=== PATIENT | female | born 1980 | race Caucasian/White ===

== ENCOUNTER 2018-11-16 17:16 | Inpatient (IN) ==
--- NOTE | 2018-11-16 18:50 | ED ---
HPI General Chief Complaint: Psychiatric Symptoms Stated Complaint: BA/VCSO Time Seen by Provider: 11/16/18 18:27 Source: patient Mode of arrival: other (Police) History of Present Illness HPI Narrative: Patient is a 38-year-old female [facility] under [facility] for psychiatric evaluation. Patient allegedly made suicidal statements while with her therapist today. She reports that she has a history of overdosing purposely a year ago. Patient reports a new recent life stressor but does not elaborate. She has no physical complaints at this time. She reports a history significant for prediabetes, depression, anxiety. MD complaint: Reports suicidal ideation and feels depressed Onset (ago): unknown Duration: constant History of same: Yes Relieving factors: none Context: Reports significant life stressor Associated symptoms: Reports denies other symptoms Related Data Home Medications Medication Instructions Recorded Confirmed clonazepam 0.5 mg PO BID 11/16/18 11/16/18 fexofenadine [Tova Allergy] 180 mg PO DAILY 11/16/18 11/16/18 fluoxetine 60 mg PO DAILY 11/16/18 11/16/18 hydroxyzine pamoate 25 mg PO HS 11/16/18 11/16/18 levocetirizine [Xyzal] 5 mg PO DAILY 11/16/18 11/16/18 lurasidone [Latuda] 40 mg PO DAILY 11/16/18 11/16/18 metformin 500 mg PO DAILY 11/16/18 11/16/18 montelukast 10 mg PO QPM 11/16/18 11/16/18 norethindrone (contraceptive) 0.35 mg PO DAILY 11/16/18 11/16/18 ranitidine HCl 150 mg PO BID 11/16/18 11/16/18 trazodone 50 mg PO DAILY 11/16/18 11/16/18 Allergies Allergy/AdvReac Type Severity Reaction Status Date / Time risperidone Allergy Hives Verified 06/24/18 07:38 Review of Systems ROS: all other systems reviewed are negative [facility] Medical History Medical History Bipolar 1 disorder (Acute) delivery delivered (Acute) Depressed (Acute) Herniated disc (Acute) Mood disorder (Acute) Pre-diabetes (Acute) Reflux esophagitis (Acute) Surgical History Surgical History H/O LEEP (Acute) Social History Social History Substance History: No History of Abuse Second Hand Smoke Exposure: Yes Smoking Status: Never smoker How Often Do You Have a Drink Containing Alcohol: Never Recent Travel in [facility] within the Last 8 Weeks: No Recent Out of Country Travel within the Last 8 Weeks: No Immunization History Tetanus Immunization: Unsure Exam Narrative Exam Narrative: GENERAL: Overweight, well-developed, alert female. Presenting in no acute distress. SKIN: Focused skin assessment warm/dry. HEAD: Atraumatic. Normocephalic. EYES: Pupils equal and round. No scleral icterus. No injection or drainage. ENT: No nasal bleeding or discharge. Mucous membranes pink and moist. NECK: Trachea midline. No JVD. CARDIOVASCULAR: Regular rate and rhythm. No murmur appreciated. RESPIRATORY: No accessory muscle use. Clear to auscultation. Breath sounds equal bilaterally. GASTROINTESTINAL: Abdomen soft, non-tender, nondistended. Hepatic and splenic margins not palpable. MUSCULOSKELETAL: No obvious deformities. No clubbing. No cyanosis. No edema. NEUROLOGICAL: Awake and alert. No obvious cranial nerve deficits. Motor grossly within normal limits. Normal speech. PSYCHIATRIC: Depressed mood and flat affect; insight and judgment normal. Course Initial Documented Vital Signs Temperature 99.0 F 11/16/18 17:52 Pulse Rate 97 H 11/16/18 17:52 Respiratory Rate 20 11/16/18 17:52 Blood Pressure 143/94 H 11/16/18 17:52 Pulse Oximetry 97 11/16/18 17:52 Last Documented Vital Signs Temperature 99 F 11/17/18 06:00 Pulse Rate 78 11/17/18 06:00 Respiratory Rate 16 11/17/18 06:00 Blood Pressure 122/76 11/17/18 06:00 Pulse Oximetry 96 11/17/18 06:00 Sign Out Sign Out Data: Patient Sign Out occurred on 11/16/18 at 19:09. Patient's care was discussed, and care was transferred from Luann Santos to Jose Swenson MD. Sign Out Comment: Labs pending > med clear for psych Last updated by Luann Santos ARNP at 11/16/18 19:08 Medical Decision Making MDM Narrative Medical decision making narrative: Patient is a 38-year-old female presenting under Gutierrez act for psychiatric evaluation. Mental health screening discussed with the patient. Psychiatric screen ordered. Care of patient transferred to Dr. Swenson who will determine disposition when labs result. Medical Screen Exam Complete: Yes Emergency Medical Condition: Yes Differential Diagnosis Differential Diagnosis: Mood disorder versus depression versus suicidal ideations versus metabolic abnormality versus other Lab Data Result diagrams: 11/16/18 18:30 11/17/18 08:32 Lab Results 11/16/18 11/16/18 11/16/18 Range/Units 18:30 18:30 18:30 WBC 10.5 (4.0-11.0) th/mm3 RBC 4.95 (4.00-5.30) mil/mm3 Hgb 14.5 (11.6-15.3) gm/dL Hct 42.9 (35.0-46.0) % MCV 86.6 (80.0-100.0) fL MCH 29.2 (27.0-34.0) pg MCHC 33.7 (32.0-36.0) % RDW 12.9 (11.6-17.2) % Plt Count 317 (150-450) th/mm3 MPV 7.9 (7.0-11.0) fL Neut % (Auto) 61.0 (16.0-70.0) % Lymph % (Auto) 28.6 (9.0-44.0) % [place] % (Auto) 7.6 (0.0-8.0) % Eos % (Auto) 2.3 (0.0-4.0) % Baso % (Auto) 0.5 (0.0-2.0) % Neut # (Auto) 6.4 (1.8-7.7) th/mm3 Lymph # (Auto) 3.0 (1.0-4.8) th/mm3 [place] # (Auto) 0.8 (0.0-0.9) th/mm3 Eos # (Auto) 0.2 (0.0-0.4) th/mm3 Baso # (Auto) 0.1 (0.0-0.2) th/mm3 WBC Differential . Differential Comment Auto diff final Sodium 138 (136-145) meq/L Potassium 3.7 (3.5-5.1) meq/L Chloride 106 (98-107) meq/L Carbon Dioxide 24.1 (21.0-32.0) meq/L Anion Gap 8 (5-15) meq/L BUN 10 (7-18) mg/dL Creatinine 0.79 (0.50-1.00) mg/dL Estimated GFR 81 L (>89) mL/min Random Glucose 130 H (74-106) mg/dL Hemoglobin A1c (4.3-6.0) % Calcium 8.7 (8.5-10.1) mg/dL Magnesium 2.0 (1.5-2.5) mg/dL Total Bilirubin 0.1 L (0.2-1.0) mg/dL AST 13 L (15-37) U/L ALT 18 (10-53) U/L Alkaline Phosphatase 64 (45-117) U/L Total Protein 7.3 (6.4-8.2) g/dL Albumin 3.5 (3.4-5.0) g/dL Triglycerides (42-150) mg/dL Cholesterol (120-200) mg/dL LDL Cholesterol, Calc (0-99) mg/dL HDL Cholesterol (40.0-60.0) mg/dL Cholesterol/HDL Ratio Ratio TSH 1.160 (0.358-3.740) uIU/mL Urine Opiates Screen Neg (Neg) Ur Barbiturates Screen Neg (Neg) Ur Amphetamines Screen Neg (Neg) U Benzodiazepines Scrn Neg (Neg) Urine Cocaine Screen Neg (Neg) U Cannabinoids Screen Neg (Neg) Serum Alcohol Less than 3 (0-5) mg/dL 11/17/18 11/17/18 Range/Units 08:32 08:32 WBC (4.0-11.0) th/mm3 RBC (4.00-5.30) mil/mm3 Hgb (11.6-15.3) gm/dL Hct (35.0-46.0) % MCV (80.0-100.0) fL MCH (27.0-34.0) pg MCHC (32.0-36.0) % RDW (11.6-17.2) % Plt Count (150-450) th/mm3 MPV (7.0-11.0) fL Neut % (Auto) (16.0-70.0) % Lymph % (Auto) (9.0-44.0) % [place] % (Auto) (0.0-8.0) % Eos % (Auto) (0.0-4.0) % Baso % (Auto) (0.0-2.0) % Neut # (Auto) (1.8-7.7) th/mm3 Lymph # (Auto) (1.0-4.8) th/mm3 [place] # (Auto) (0.0-0.9) th/mm3 Eos # (Auto) (0.0-0.4) th/mm3 Baso # (Auto) (0.0-0.2) th/mm3 WBC Differential Differential Comment Sodium 137 (136-145) meq/L Potassium 3.9 (3.5-5.1) meq/L Chloride 103 (98-107) meq/L Carbon Dioxide 25.1 (21.0-32.0) meq/L Anion Gap 9 (5-15) meq/L BUN 10 (7-18) mg/dL Creatinine 0.89 (0.50-1.00) mg/dL Estimated GFR 71 L (>89) mL/min Random Glucose 223 H (74-106) mg/dL Hemoglobin A1c 6.7 H (4.3-6.0) % Calcium 8.8 (8.5-10.1) mg/dL Magnesium (1.5-2.5) mg/dL Total Bilirubin (0.2-1.0) mg/dL AST (15-37) U/L ALT (10-53) U/L Alkaline Phosphatase (45-117) U/L Total Protein (6.4-8.2) g/dL Albumin (3.4-5.0) g/dL Triglycerides 172 H (42-150) mg/dL Cholesterol 184 (120-200) mg/dL LDL Cholesterol, Calc 110 H (0-99) mg/dL HDL Cholesterol 40.1 (40.0-60.0) mg/dL Cholesterol/HDL Ratio 4.58 Ratio TSH (0.358-3.740) uIU/mL Urine Opiates Screen (Neg) Ur Barbiturates Screen (Neg) Ur Amphetamines Screen (Neg) U Benzodiazepines Scrn (Neg) Urine Cocaine Screen (Neg) U Cannabinoids Screen (Neg) Serum Alcohol (0-5) mg/dL Discharge Plan Discharge Disposition Patient Disposition: ED Admit(ED Internal Use Only) Discharge Condition Condition: Stable Discharge Order Discharge Orders: Discharge Order (Routine); Ordered 11/17/18 Ordered By: Ced Ham ED Use Only Admit Order (Routine); Ordered 11/16/18 Ordered By: Priyank Naranjo Physicians Team ED Provider: Jose Swenson Primary Care Provider: UNKNOWN, Attending Provider: Ced Ham Status ED Status: Left Department Discharge Information Discharge Date/Time: 11/16/18 23:21
[2018-11-16 18:55] LABS: Amphetamine Screen,Urine Neg (Neg); Barbiturate Screen,Urine Neg (Neg); Cannabinoid Screen,Urine Neg (Neg); Cocaine Screen,Urine Neg (Neg)
[2018-11-16 18:57] LABS: Opiate Screen,Urine Neg (Neg)
[2018-11-16 19:11] LABS: Albumin 3.5 g/dL (3.4-5.0); Anion Gap 8 meq/L (5-15); Aspartate Aminotransferase 13 U/L (15-37); Blood Urea Nitrogen 10 mg/dL (7-18); Calcium 8.7 mg/dL (8.5-10.1); Carbon Dioxide 24.1 meq/L (21.0-32.0); Chloride 106 meq/L (98-107); Glomerular Filtration Rate 81 mL/min (>89); Glucose,Random 130 mg/dL (74-106); Potassium 3.7 meq/L (3.5-5.1); Sodium 138 meq/L (136-145)
[2018-11-16 19:12] LABS: Alanine Aminotransferase 18 U/L (10-53); Baso # (Auto) 0.1 th/mm3 (0.0-0.2); Baso % (Auto) 0.5 % (0.0-2.0); Eos # (Auto) 0.2 th/mm3 (0.0-0.4); Eos % (Auto) 2.3 % (0.0-4.0); Hematocrit 42.9 % (35.0-46.0); Hemoglobin 14.5 gm/dL (11.6-15.3); Lymph % (Auto) 28.6 % (9.0-44.0); Mean Corpuscular HGB Conc 33.7 % (32.0-36.0); Mean Corpuscular Hemoglobin 29.2 pg (27.0-34.0); Mean Corpuscular Volume 86.6 fL (80.0-100.0); Mean Platelet Volume 7.9 fL (7.0-11.0); Mono # (Auto) 0.8 th/mm3 (0.0-0.9); Mono % (Auto) 7.6 % (0.0-8.0); Neut # (Auto) 6.4 th/mm3 (1.8-7.7); Platelet Count 317 th/mm3 (150-450); Red Blood Count 4.95 mil/mm3 (4.00-5.30); Red Cell Distribution Width 12.9 % (11.6-17.2); White Blood Count 10.5 th/mm3 (4.0-11.0)
[2018-11-16 19:22] LABS: Alkaline Phosphatase 64 U/L (45-117); Total Protein 7.3 g/dL (6.4-8.2)
[2018-11-16] MEDS ORDERED: Montelukast 10 MG Tablet PO SCH (22:00)
[2018-11-16] MEDS ORDERED: traZODone 50 MG Tablet PO SCH (22:00)
[2018-11-16] MEDS ORDERED: Aluminum/Magnesium/Simethacone Susp 30 ML UDC PO PRN (22:22)
[2018-11-16] MEDS ORDERED: Acetaminophen 325 MG Tablet PO PRN (22:22)
[2018-11-16] MEDS: Famotidine 20 MG Tablet PO SCH (23:10)
[2018-11-17 06:12] VITALS: BP 122/76; PULSE 78; RESP 16; TEMP 99; O2SAT 96
[2018-11-17] MEDS: Famotidine 20 MG Tablet PO SCH (08:59)
[2018-11-17] MEDS ORDERED: clonazePAM 0.5 MG Tablet PO SCH (09:00)
[2018-11-17] MEDS ORDERED: NORETHINDRONE 0.35 MG PO SCH ×2 (09:00)
[2018-11-17] MEDS ORDERED: Loratadine 10 MG Tablet PO SCH (09:00)
[2018-11-17] MEDS ORDERED: FLUoxetine 20 MG Capsule PO SCH (09:00)
[2018-11-17 09:35] LABS: Calcium 8.8 mg/dL (8.5-10.1); Carbon Dioxide 25.1 meq/L (21.0-32.0); Potassium 3.9 meq/L (3.5-5.1)
[2018-11-17 09:42] LABS: Chol/HDL Ratio 4.58 Ratio; HDL Cholesterol 40.1 mg/dL (40.0-60.0)
--- NOTE | 2018-11-17 11:07 | P.HPPSY ---
Provisional Diagnosis Admission Date: November 16, 2018 21:26 Borderline personality disorder Competence Certification of Person's Competence To Provide Express and Informed Consent I have personally examined Shakila Bhatia, a person being served at [facility] on, November 17, 2018 1051. Express and informed consent means consent voluntarily given in writing, by a competent person, after sufficient explanation and disclosure of the subject matter involved to enable the person to make a knowing and willful decision without any element of force, fraud, deceit, duress, or other form of constraint or coercion. This person is 18 years of age or older, is not now known to be incompetent to consent to treatment with a guardian advocate, and does not have a health care surrogate or proxy currently making medical treatment decisions. I have found this person to be one of the following: [] Competent to provide express and informed consent, as defined above, for voluntary admission to this facility and is competent to provide express and informed consent for treatment. He/she has the consistent capacity to make well reasoned, willful, and knowing decisions concerning his or her medical or mental health treatment. The person fully and consistently understands the purpose of the admission for examination/placement and is fully capable of personally exercising all rights assured [place] [] Incompetent to provide express and informed consent to voluntary admission, and this is incompetent to provide express and informed consent to treatment. The person must be transferred to involuntary status and a petition for a guardian advocate filed with the Circuit Court. [] Refusing to provide express and informed consent to voluntary admission but is competent to provide express and informed consent for treatment. The person must be discharged or transferred to involuntary status. Form shall be completed within 24 hours of a person's arrival at the receiving facility and filed in the clinical record of each person: 1. Admitted on a voluntary basis 2. Permitted to provide express and informed consent to his/her own treatment 3. Allowed to transfer from involuntary to voluntary status 4. Prior to permitting a person to consent to his or her own treatment after having been previously found incompetent to consent to treatment. History of Present Illness Capacity: Has capacity Chief Complaint: Suicidal ideation with thoughts of running her car off the road or into oncoming traffic. History of Present Illness: November 17, 2018 HPI: Patient is a 30-year-old female who is admitted for suicidal ideation and plan to run her car into oncoming traffic or off the road. Patient said she does not want to kill anyone else but had not thought about that when she was thinking about suicide. She claims that she has been fired at work because she often comes in late and often does not come in at all. She feels this is unjust. Patient has a history of being discharged from one psychiatrist because she was shopping for medication with other psychiatrist. Currently she is taking several antihistamines along with trazodone and Klonopin for help with sleep. The antihistamines are also for hives. She claims that she started having hives with the first use of Risperdal. Patient initially seemed interested in adjustments of her medication but when she discovered that some of them might be eliminated she came to the nurses station and asked me for discharge. Offered 24-hour patient under voluntary patient refused voluntary but on reflection is willing to sign a contract for safety if she is allowed to return home. Past psychiatric history: Patient denied previous psychiatric attempts but apparently there is evidence to the contrary. - Inpatient Certification I certify that the inpatient services were ordered in accordance with Medicare regulations governing the order. This includes certification that hospital inpatient services are reasonable and necessary and in the case of services not specified as inpatient-only under 42 CFR 419.22(n), that they are appropriately provided as inpatient services in accordance to with the 2-midnight benchmark under 43 CFR 412.3(e) I certify that inpatient psychiatric hospital services are medically necessary. Evaluation and treatment and/or diagnostic testing are expected to improve the patient's condition. The patient needs on a daily basis, active treatment furnished directly by or requiring the supervision of inpatient psychiatric facility personnel. Estimated Total Length of Stay (Days): 1 Plans for Post Hospital Care: Home Review of Systems November 17, 2018 ROS: Patient denies any physical complaints beyond her feelings of being depressed and anxious and her hives that she attributes to allergy to Risperdal. Patient complains of problems sleeping and is currently being treated with metformin. She claims to have had a sleep study but apparently this was take home CPAP without a polysomnogram. She says she has restless leg syndrome based on how she kicks the covers at night. PMF - History History Provided By: Patient - Medical History Medical History: Medical History (Last Reviewed 11/16/18 @ 18:51 by HUBER Paul) Bipolar 1 disorder delivery delivered Depressed Herniated disc Mood disorder Pre-diabetes Reflux esophagitis - Surgical History Surgical History: Surgical History (Last Reviewed 11/16/18 @ 18:51 by HUBER Paul) H/O LEEP - Tobacco History Second Hand Smoke Exposure: Yes Tobacco Use In Past 30 Days: No Smoking Status: Never smoker - Alcohol History How Often Do You Have a Drink Containing Alcohol: Never - Substance Use History Substance History: No History of Abuse - Travel History Recent Travel in the [place] Within the Last 8 Weeks: No Recent Travel Out of the Country Within the Last 8 Weeks: No - Immunization History Tetanus Immunization: Unsure Hx Influenza Vaccine This Season: No Medications and Allergies Active Medications: Active Medications Acetaminophen (Tylenol) 650 mg PO Q4H PRN PRN Reason: Pain 1-5 or Temp >101F Al Hydrox/Mg Hydrox/Simethicone (Mag-Al Plus Susp Liq) 30 ml PO Q6H PRN PRN Reason: DYSPEPSIA Al Hydroxide/Mg Hydroxide (Milk Of Magnesia Liq) 30 ml PO Q12H PRN PRN Reason: Mild Constipation Diphenhydramine HCl (Benadryl) 50 mg PO HS PRN PRN Reason: INSOMNIA Diphenhydramine HCl (Benadryl Inj) 50 mg IM HS PRN PRN Reason: INSOMNIA Famotidine (Pepcid) 20 mg PO BID [facility] Last Admin: 11/17/18 08:59 Dose: 20 mg Fluoxetine HCl (Prozac) 60 mg PO DAILY [facility] Last Admin: 11/17/18 08:59 Dose: 60 mg Hydroxyzine HCl (Atarax) 25 mg PO HS [facility] Last Admin: 11/16/18 23:09 Dose: 25 mg Hydroxyzine HCl (Atarax) 50 mg PO Q6H PRN PRN Reason: ANXIETY Last Admin: 11/17/18 08:59 Dose: 50 mg Loratadine (Claritin) 10 mg PO DAILY [facility] Last Admin: 11/17/18 08:59 Dose: 10 mg Lurasidone HCl (Latuda) 40 mg PO HS [facility] Last Admin: 11/16/18 23:09 Dose: 40 mg Metformin HCl (Glucophage) 500 mg PO DAILY [facility] Last Admin: 11/17/18 08:59 Dose: 500 mg Montelukast Sodium (Singulair) 10 mg PO [facility] Last Admin: 11/16/18 23:10 Dose: 10 mg Nicotine (Habitrol 21 Mg Patch.24 Hr) 1 patch T-DERMAL DAILY [facility] Last Admin: 11/17/18 09:02 Dose: Not Given Patch Removal (Remove Old Patch) 1 each T-DERMAL HS [facility] Last Admin: 11/16/18 23:09 Dose: Not Given Patient Own Medication ( Xyzal 5 Mg Po Daily) 0 each PO HS [facility] Patient Own Medication ( Norethindrone 0.35 Mg Po Daily) 0 each PO DAILY [facility] Last Admin: 11/17/18 09:02 Dose: Not Given Allergies Allergy/AdvReac Type Severity Reaction Status Date / Time risperidone Allergy Hives Verified 06/24/18 07:38 Home Medications Medication Instructions Recorded Confirmed Type clonazepam 0.5 mg PO BID 11/16/18 11/16/18 History fexofenadine [Tova Allergy] 180 mg PO DAILY 11/16/18 11/16/18 History fluoxetine 60 mg PO DAILY 11/16/18 11/16/18 History hydroxyzine pamoate 25 mg PO HS 11/16/18 11/16/18 History levocetirizine [Xyzal] 5 mg PO DAILY 11/16/18 11/16/18 History lurasidone [Latuda] 40 mg PO DAILY 11/16/18 11/16/18 History metformin 500 mg PO DAILY 11/16/18 11/16/18 History montelukast 10 mg PO QPM 11/16/18 11/16/18 History norethindrone (contraceptive) 0.35 mg PO DAILY 11/16/18 11/16/18 History ranitidine HCl 150 mg PO BID 11/16/18 11/16/18 History trazodone 50 mg PO DAILY 11/16/18 11/16/18 History Results - Labs CBC & Chem 7: 11/16/18 18:30 11/17/18 08:32 Labs: Laboratory Results - last 24 hr 11/16/18 11/16/18 11/16/18 18:30 18:30 18:30 WBC 10.5 RBC 4.95 Hgb 14.5 Hct 42.9 MCV 86.6 MCH 29.2 MCHC 33.7 RDW 12.9 Plt Count 317 MPV 7.9 Neut % (Auto) 61.0 Lymph % (Auto) 28.6 [place] % (Auto) 7.6 Eos % (Auto) 2.3 Baso % (Auto) 0.5 Neut # (Auto) 6.4 Lymph # (Auto) 3.0 [place] # (Auto) 0.8 Eos # (Auto) 0.2 Baso # (Auto) 0.1 WBC Differential . Differential Comment Auto diff final Sodium 138 Potassium 3.7 Chloride 106 Carbon Dioxide 24.1 Anion Gap 8 BUN 10 Creatinine 0.79 Estimated GFR 81 L Random Glucose 130 H Calcium 8.7 Magnesium 2.0 Total Bilirubin 0.1 L AST 13 L ALT 18 Alkaline Phosphatase 64 Total Protein 7.3 Albumin 3.5 Triglycerides Cholesterol LDL Cholesterol, Calc HDL Cholesterol Cholesterol/HDL Ratio TSH 1.160 Urine Opiates Screen Neg Ur Barbiturates Screen Neg Ur Amphetamines Screen Neg U Benzodiazepines Scrn Neg Urine Cocaine Screen Neg U Cannabinoids Screen Neg Serum Alcohol Less than 3 11/17/18 08:32 WBC RBC Hgb Hct MCV MCH MCHC RDW Plt Count MPV Neut % (Auto) Lymph % (Auto) [place] % (Auto) Eos % (Auto) Baso % (Auto) Neut # (Auto) Lymph # (Auto) [place] # (Auto) Eos # (Auto) Baso # (Auto) WBC Differential Differential Comment Sodium 137 Potassium 3.9 Chloride 103 Carbon Dioxide 25.1 Anion Gap 9 BUN 10 Creatinine 0.89 Estimated GFR 71 L Random Glucose 223 H Calcium 8.8 Magnesium Total Bilirubin AST ALT Alkaline Phosphatase Total Protein Albumin Triglycerides 172 H Cholesterol 184 LDL Cholesterol, Calc 110 H HDL Cholesterol 40.1 Cholesterol/HDL Ratio 4.58 TSH Urine Opiates Screen Ur Barbiturates Screen Ur Amphetamines Screen U Benzodiazepines Scrn Urine Cocaine Screen U Cannabinoids Screen Serum Alcohol Exam Vital signs: Vital Signs 11/16/18 17:52 11/16/18 18:00 11/17/18 00:02 Temperature 99.0 F 99.0 F 99.0 F Pulse Rate 97 H 97 H 86 Respiratory Rate 20 20 18 Blood Pressure 143/94 H 143/94 H 118/78 Pulse Oximetry 97 97 96 11/17/18 06:00 Temperature 99 F Pulse Rate 78 Respiratory Rate 16 Blood Pressure 122/76 Pulse Oximetry 96 Intake & Output 11/16/18 11/17/18 11/17/18 18:59 06:59 18:59 Weight 250 kg 112.9 kg Other: Weight On Admission 112.9 kg Mental Status Examination Consciousness: Alert Orientation: x4 Motor Activity: Normal gait Speech: Unremarkable Language: Adequate Fund of Knowledge: Adequate Attention and Concentration: Adequate Memory: Unremarkable Mood: Anxious Affect: Anxious Thought Process & Associations: Intact Thought Content: Appropriate Hallucination Type: None Delusion Type: None Suicidal Ideation: No Suicidal Plan: No Suicidal Intention: No Homicidal Ideation: No Homicidal Plan: No Homicidal Intention: No Insight: Poor Judgment: Impulsive Assessment and Plan - Plan Plan: Estimated LOS: [1] days Patient will sign a contract for safety and allowed to go home. Follow-up with patient psychiatry. Justification for Continued Inpatient Stay: November 17, 2018 Patient will sign a contract for safety and be allowed to go home. For follow- up care with her outpatient psychiatrist.
--- NOTE | 2018-11-17 11:12 | P.DSPSY ---
Psychiatry Discharge Summary Inpatient Psychiatric care?: Yes Advance Directives: No Mental Health Advance Directive: No Health Care Proxy: No - Admission Admission Date: November 16, 2018 21:26 Brief History: November 17, 2018 HPI: Patient is a 30-year-old female who is admitted for suicidal ideation and plan to run her car into oncoming traffic or off the road. Patient said she does not want to kill anyone else but had not thought about that when she was thinking about suicide. She claims that she has been fired at work because she often comes in late and often does not come in at all. She feels this is unjust. Patient has a history of being discharged from one psychiatrist because she was shopping for medication with other psychiatrist. Currently she is taking several antihistamines along with trazodone and Klonopin for help with sleep. The antihistamines are also for hives. She claims that she started having hives with the first use of Risperdal. Patient initially seemed interested in adjustments of her medication but when she discovered that some of them might be eliminated she came to the nurses station and asked me for discharge. Offered 24-hour patient under voluntary patient refused voluntary but on reflection is willing to sign a contract for safety if she is allowed to return home. Past psychiatric history: Patient denied previous psychiatric attempts but apparently there is evidence to the contrary. Tobacco Use In Past 30 Days: No How Often Do You Have a Drink Containing Alcohol: Never Hospital Course: November 17, 2018 Course in hospital. After detailed history including allergies and other complaints associated with the patient's polypharmacy it was decided that the patient did not need to be on 4 medications for sleep and several antihistamines presumably for sleep and or for recurrent episodes of hives. The patient was unhappy with the idea of reducing her pharmacy and asked to be discharged agreeing to sign a contract for safety denying continued suicidal ideation or intent. - Discharge Discharge Date: 11/17/18 Discharge Disposition: Home - Discharge Instructions Discharge Diet: Diabetic Diet Activities You Can Perform: Regular- No Restrictions - Discharge Time > 30 minutes Mental Status Examination Consciousness: Alert Orientation: x4 Motor Activity: Normal gait Speech: Unremarkable Language: Adequate Fund of Knowledge: Adequate Attention and Concentration: Adequate Memory: Unremarkable Mood: Anxious Affect: Anxious Thought Process & Associations: Intact Thought Content: Appropriate Hallucination Type: None Delusion Type: None Suicidal Ideation: No Suicidal Plan: No Suicidal Intention: No Homicidal Ideation: No Homicidal Plan: No Homicidal Intention: No Insight: Poor Judgment: Impulsive Discharge/Advance Care Plan - Results Vital Signs: Last Vital Signs Temp 99 F 11/17/18 06:00 Pulse 78 11/17/18 06:00 Resp 16 11/17/18 06:00 BP 122/76 11/17/18 06:00 Pulse Ox 96 11/17/18 06:00 Lab Results: Abnormal Lab Results 11/16/18 11/16/18 11/16/18 18:30 18:30 18:30 WBC 10.5 RBC 4.95 Hgb 14.5 Hct 42.9 MCV 86.6 MCH 29.2 MCHC 33.7 RDW 12.9 Plt Count 317 MPV 7.9 Neut % (Auto) 61.0 Lymph % (Auto) 28.6 [place] % (Auto) 7.6 Eos % (Auto) 2.3 Baso % (Auto) 0.5 Neut # (Auto) 6.4 Lymph # (Auto) 3.0 [place] # (Auto) 0.8 Eos # (Auto) 0.2 Baso # (Auto) 0.1 WBC Differential . Differential Comment Auto diff final Sodium 138 Potassium 3.7 Chloride 106 Carbon Dioxide 24.1 Anion Gap 8 BUN 10 Creatinine 0.79 Estimated GFR 81 L Random Glucose 130 H Calcium 8.7 Magnesium 2.0 Total Bilirubin 0.1 L AST 13 L ALT 18 Alkaline Phosphatase 64 Total Protein 7.3 Albumin 3.5 Triglycerides Cholesterol LDL Cholesterol, Calc HDL Cholesterol Cholesterol/HDL Ratio TSH 1.160 Urine Opiates Screen Neg Ur Barbiturates Screen Neg Ur Amphetamines Screen Neg U Benzodiazepines Scrn Neg Urine Cocaine Screen Neg U Cannabinoids Screen Neg Serum Alcohol Less than 3 11/17/18 08:32 WBC RBC Hgb Hct MCV MCH MCHC RDW Plt Count MPV Neut % (Auto) Lymph % (Auto) [place] % (Auto) Eos % (Auto) Baso % (Auto) Neut # (Auto) Lymph # (Auto) [place] # (Auto) Eos # (Auto) Baso # (Auto) WBC Differential Differential Comment Sodium 137 Potassium 3.9 Chloride 103 Carbon Dioxide 25.1 Anion Gap 9 BUN 10 Creatinine 0.89 Estimated GFR 71 L Random Glucose 223 H Calcium 8.8 Magnesium Total Bilirubin AST ALT Alkaline Phosphatase Total Protein Albumin Triglycerides 172 H Cholesterol 184 LDL Cholesterol, Calc 110 H HDL Cholesterol 40.1 Cholesterol/HDL Ratio 4.58 TSH Urine Opiates Screen Ur Barbiturates Screen Ur Amphetamines Screen U Benzodiazepines Scrn Urine Cocaine Screen U Cannabinoids Screen Serum Alcohol Laboratory Results Triglycerides 172 mg/dL (42-150) H 11/17/18 08:32 Cholesterol 184 mg/dL (120-200) 11/17/18 08:32 LDL Cholesterol, Calc 110 mg/dL (0-99) H 11/17/18 08:32 HDL Cholesterol 40.1 mg/dL (40.0-60.0) 11/17/18 08:32 TSH 1.160 uIU/mL (0.358-3.740) 11/16/18 18:30 Summary of Procedures: None Pending Results: None - Medications Number of antipsychotic medications at discharge: 0 - Discharge Care Plan Goals to Promote Your Health: * To prevent worsening of your condition and complications * To maintain your health at the optimal level Directions to Meet Your Goals: Take your medications as prescribed Follow your dietary instruction Follow activity as directed Keep your appointments as scheduled Take your immunizations and boosters as scheduled If your symptoms worsen call your PCP, if no PCP go to Urgent Care Center or Emergency Room For 01/06 questions related to your inpatient stay or results of tests pending at discharge, please contact Dr. Ced Ham MD at Smoking is Dangerous to Your Health. Avoid second hand smoking
[2018-11-17 15:58] LABS: Hemoglobin A1c 6.7 % (4.3-6.0)
[2018-11-17] MEDS ORDERED: LEVOCETIRIZINE 5 MG PO SCH (21:00)
== END 2018-11-17 11:35 | disposition home or self-care (01) | DRG 885 ==
LOC: NEPD 17:16 → NEDA 21:26 → H260 22:55
PROVIDERS: ADMIT Psychiatry & Neurology Child & Adolescent Psychiatry; ATTEND Psychiatry & Neurology Child & Adolescent Psychiatry